=== PATIENT | male | born 1950 | race Two or more races ===

== ENCOUNTER 2022-02-20 12:34 | Inpatient (IN) | payer MEDICARE ==
[~2022-02-20] VITALS: Ht 182.9 cm; Wt 118.2 kg
[2022-02-20] VITALS (21 sets, daily range): BP systolic 133–215; BP diastolic 70–105
[2022-02-20] MEDS ORDERED: normal saline 1000ML IV soln IVB ONE (13:30)
[2022-02-20] MEDS ORDERED: LORazepam 2 mg/ml vial IV ONE (13:30)
[2022-02-20] MEDS ORDERED: ondansetron/PF 4mg/2ml inj IV ONE (13:30)
[2022-02-20] MEDS ORDERED: morphine 4 MG/ML inj SYRINge IV ONE (13:30)
[2022-02-20 14:10] LABS: BASOPHILS % (AUTO) 0.3 % (0-1); EOSINOPHILS # (AUTO) 0.1 X10'3 (0-0.9); EOSINOPHILS % (AUTO) 0.7 % (0-6); HEMATOCRIT 43.9 % (42.0-52.0); HEMOGLOBIN 14.4 g/dl (14.0-17.9); LYMPHOCYTES # (AUTO) 1.1 X10'3 (1.1-4.8); MEAN CORPUSCULAR HEMOGLOBIN 28.4 PG (27.0-31.0); MEAN CORPUSCULAR HGB CONC 32.9 g/dL (33.0-36.5); MEAN CORPUSCULAR VOLUME 86.3 FL (78-98); MEAN PLATELET VOLUME 6.9 FL (7.4-10.4); MONOCYTES # (AUTO) 0.4 X10'3 (0-0.9); MONOCYTES % (AUTO) 4.4 % (2-12); NEUTROPHILS % (AUTO) 83.6 % (42-75); PLATELET COUNT 207 X10'3 (140-440); RED BLOOD COUNT 5.08 X10'6 (4.70-6.10); RED CELL DISTRIBUTION WIDTH 17.1 % (11.5-14.5); WHITE BLOOD COUNT 9.6 X10'3 (4.5-11.0)
[2022-02-20] MEDS: morphine 2 MG/ML inj. syringe IV PRN (14:18)
[2022-02-20] MEDS ORDERED: piperacillin/tazo 4.5gm/100ml 100 ML IV ONE (14:25)
[2022-02-20 14:35] LABS: ALANINE AMINOTRANSFERASE 19 U/L (12-78); ALBUMIN 3.9 G/DL (3.4-5.0); ALKALINE PHOSPHATASE 84 IU/L (46-116); ANION GAP 9 (8-16); ASPARTATE AMINO TRANSFERASE 20 U/L (10-37); BILIRUBIN,TOTAL 0.8 MG/DL (0.1-1.0); BLOOD UREA NITROGEN 15 MG/DL (7-18); BUN/CREATININE RATIO 15.3 (5.4-32.0); CALCIUM 9.7 MG/DL (8.5-10.1); CHLORIDE 101 MMOL/L (99-107); CREATININE 0.98 MG/DL (0.60-1.10); GLUCOSE 155 MG/DL (70-104); SODIUM 139 MMOL/L (135-145); TOTAL CARBON DIOXIDE 29.5 MMOL/L (24-32); eGFR 76 ML/MIN
[2022-02-20] MEDS ORDERED: iohexol 300mg/ml 100ml inj. ONE (14:37)
[2022-02-20] MEDS: potassium Cl 10 mEq/100mL bag IV SCH ×2 (15:15→16:05)
[2022-02-20] MEDS ORDERED: morphine 4 MG/ML inj SYRINge IV PRN (15:50)
[2022-02-20] MEDS ORDERED: morphine 2 MG/ML inj. syringe IV PRN (15:50)
[2022-02-20] MEDS ORDERED: proCHLORperazine 10 MG/2 ml inj IV PRN (15:50)
[2022-02-20] MEDS ORDERED: ondansetron/PF 4mg/2ml inj IV PRN ×2 (15:50→16:00)
[2022-02-20] MEDS ORDERED: meperidine/PF 25mg/ml syringe IV PRN ×3 (15:50)
[2022-02-20] MEDS ORDERED: ringers solution, lacted 1,000 ML IV SCH (15:50)
[2022-02-20] MEDS ORDERED: magnesium 4gm in 100ml NS 100 ML IV PRN (16:00)
[2022-02-20] MEDS ORDERED: potassium Cl 20 mEq SR tablet PO PRN ×2 (16:00)
[2022-02-20] MEDS ORDERED: acetaminophen 325mg tablet PO PRN (16:00)
[2022-02-20] MEDS ORDERED: potassium Cl 40MEQ/1/2NS 520ml 520 ML IV PRN (16:00)
[2022-02-20] MEDS ORDERED: magnesium Cl slow-release 64mg tablet PO PRN (16:00)
--- NOTE | 2022-02-20 16:03 | NUR ---
PT BROUGHT INTO THE PACU FROM ED BY CYNTHIA, NO REPORT RECEIVED. ATTACHED DROWSY PT TO CM, BP 205/105 HR 99 SAO2 94% ON 2 LITERS, CALL INTO DR WALTON AND UPDATED, ORDERS RECEIVED, LABETALOL 5 MG GIVEN X 2 DOSES OVER 6 MINUTES W/BP STILL IN LOW 200'S/100'S, PT TAKEN TO THE OR FOR EMERGENT SURGERY. Addendum: 02/20/22 at 1644 by Renee Dial RN Amended: Links added.
[2022-02-20] MEDS ORDERED: labetalol 20mg/4ml (5mg/ml) syringe IV ONE (16:12)
[2022-02-20] MEDS: labetalol 20mg/4ml (5mg/ml) syringe IV PRN ×3 (16:12→17:58)
[2022-02-20] MEDS ORDERED: sevoflurane 250ml liquid IH ONE (16:17)
[2022-02-20] MEDS ORDERED: potassium Cl 2 mEq/ml inj IV ONE (16:17)
[2022-02-20 16:21] LABS: MAGNESIUM 1.7 MG/DL (1.5-2.4)
[2022-02-20] MEDS ORDERED: fentaNYL /PF 50mcg/ml 5ml ampule ONE (16:35)
[2022-02-20] MEDS ORDERED: midazolam 1 mg/ML 2ml injection ONE (16:35)
[2022-02-20] MEDS ORDERED: LIDOcaine 2% (20mg/ml) 5ml vial ONE (16:48)
[2022-02-20] MEDS ORDERED: rocuronium 10mg/ml inj IV ONE (16:48)
[2022-02-20] MEDS ORDERED: propofol inj 20 ML IV ONE (16:48)
[2022-02-20] MEDS ORDERED: BUPIVAcaine 0.5% inj/PF 30 ML ONE (17:21)
--- NOTE | 2022-02-20 17:43 | NUR ---
Received from OR via BED, accompanied by Anesthesiologist DR WALTON and report given by Anesthesiologist AND MITIGATION SUPERVISOR. PT RESTLESS, FOLLOWS COMMANDS BUT QUICKLY NEEDS REMINDERS OF WHERE HE IS AND THAT HE HAS JUST HAD SURGERY. AFTER A FEW MINUTES PT SETTLED DOWN. PAGE INTO RT FOR BREATHING TX. ENCOURAGED COUGH AND DEEP BREATH. ABDOMEN W/TRANSVERSE INCISION W/TAGADERM COVERING CDI. TIERNEY CATHETER TO GRAVITY DRAINAGE W/LIGHT YELLOW URINE IN DRAINAGE BAG. Addendum: 02/20/22 at 1808 by Renee Dial RN Amended: Links added.
[2022-02-20] MEDS ORDERED: ipratropium/albuterol 3ml nebule NEB PRN (17:50)
[2022-02-20] MEDS ORDERED: naloxone 0.4 mg/ml inj IV PRN (18:10)
[2022-02-20] MEDS ORDERED: hydrALAZINE 20mg/ml inj. IV PRN (18:45)
[2022-02-20] MEDS: HYDROmorph/NS 0.2 mg/ml PCA 100 ML IV SCH ×4 (18:46→23:00)
[2022-02-20] MEDS ORDERED: MESSAGE TO PHARMACY PO ONE (19:00)
[2022-02-20] MEDS ORDERED: dextrose 50%-water 50ml dispensing syringe IV PRN ×2 (19:00)
[2022-02-20] MEDS ORDERED: insulin Lispro (HumaLOG) vial - multi-dose SQ SCH (19:00)
[2022-02-20] MEDS ORDERED: DEXTROSE 15 GM of carb/4 tabs (each vial/BOTTLE has 4 tablets) PO PRN ×2 (19:00)
[2022-02-20] MEDS ORDERED: glucagon, human recombinant 1mg kit SUBCUT PRN (19:00)
[2022-02-20 19:20] LABS: HEMOGLOBIN A1C 5.7 % (4.5-6.2)
--- NOTE | 2022-02-20 19:33 | NUR ---
Report called to receiving nurse. Transferred via BED ON AND 03.25 BAG OF Belongings SENT W/PT TO ROOM 348A. PT REMAINS DROWSY, BUT RESPONDS APPROPRIATELY, RECEVING RN AT BEDSIDE TO RECEIVE PT, BLL, SIDE RAILS UP X 2, CALL LIGHT GIVEN TO PT. Special Issues communicated to receiving nurse. YES. Addendum: 02/20/22 at 1938 by Renee Dial RN Amended: Links added.
[2022-02-20] MEDS: K and/or MAG REPLACEMENT MC SCH (20:00)
[2022-02-20 20:47] LABS: MAGNESIUM 1.6 MG/DL (1.5-2.4); POTASSIUM 4.9 MMOL/L (3.5-5.1)
[2022-02-20] MEDS: insulin glargine (Lantus) pen - multi-dose SQ SCH (21:00)
[2022-02-20] MEDS: normal saline 1000ml 1,000 ML IV SCH (23:39)
[2022-02-21] MEDS: HYDROmorph/NS 0.2 mg/ml PCA 100 ML IV SCH ×4 (01:00→07:00)
[2022-02-21 02:00] VITALS: BP 135/75
[2022-02-21 06:00] VITALS: BP 140/69
[2022-02-21 06:23] LABS: ALBUMIN 2.9 G/DL (3.4-5.0); ANION GAP 6 (8-16); BLOOD UREA NITROGEN 15 MG/DL (7-18); BUN/CREATININE RATIO 16.7 (5.4-32.0); CALCIUM 8.7 MG/DL (8.5-10.1); CHLORIDE 103 MMOL/L (99-107); GLUCOSE 133 MG/DL (70-104); MAGNESIUM 1.7 MG/DL (1.5-2.4); POTASSIUM 4.3 MMOL/L (3.5-5.1); SODIUM 138 MMOL/L (135-145); TOTAL CARBON DIOXIDE 29.2 MMOL/L (24-32); eGFR 83 ML/MIN
[2022-02-21 06:27] LABS: BASOPHILS % (AUTO) 0.2 % (0-1); EOSINOPHILS % (AUTO) 0 % (0-6); HEMATOCRIT 41.1 % (42.0-52.0); HEMOGLOBIN 13.3 g/dl (14.0-17.9); LYMPHOCYTES # (AUTO) 0.8 X10'3 (1.1-4.8); MEAN CORPUSCULAR HEMOGLOBIN 28.1 PG (27.0-31.0); MEAN CORPUSCULAR HGB CONC 32.4 g/dL (33.0-36.5); MEAN CORPUSCULAR VOLUME 86.7 FL (78-98); MEAN PLATELET VOLUME 7.4 FL (7.4-10.4); MONOCYTES # (AUTO) 1.1 X10'3 (0-0.9); MONOCYTES % (AUTO) 9.6 % (2-12); NEUTROPHILS # (AUTO) 9.7 X10'3 (1.8-7.7); NEUTROPHILS % (AUTO) 83.2 % (42-75); PLATELET COUNT 216 X10'3 (140-440); RED BLOOD COUNT 4.74 X10'6 (4.70-6.10); RED CELL DISTRIBUTION WIDTH 17.5 % (11.5-14.5); WHITE BLOOD COUNT 11.6 X10'3 (4.5-11.0)
--- NOTE | 2022-02-21 06:44 | NUR ---
Problems reprioritized. Patient report given, questions answered & plan of care reviewed with TOMAS PASTOR. Addendum: 02/21/22 at 0645 by Sada Salcedo RN Amended: Links added.
[2022-02-21] MEDS: K and/or MAG REPLACEMENT MC SCH ×2 (08:00→21:47)
[2022-02-21 10:00] VITALS: BP 124/63
--- NOTE | 2022-02-21 10:00 | NUR ---
Dr Rose aware of pt's O2 Sats are 88 on RA and 92-95 on 2L/NC/O2.
[2022-02-21] MEDS ORDERED: PCA WASTE DOCUMENTATION MC ONE (10:10)
[2022-02-21] MEDS: normal saline 1000ml 1,000 ML IV SCH ×2 (11:15→22:09)
[2022-02-21] MEDS ORDERED: CHLO25TA10 PO (16:35)
[2022-02-21] MEDS ORDERED: PANT40TA54 PO (16:35)
--- NOTE | 2022-02-21 17:18 | NUR ---
[place] drsg w/ serous drainage leaking on linen was changed. Glenn intact, no active bleeding noted.
[2022-02-21 18:00] VITALS: BP 148/67
--- NOTE | 2022-02-21 18:10 | NUR ---
Patient report given, questions answered & plan of care reviewed with TOMAS Kline.
[2022-02-21] MEDS: morphine 2 MG/ML inj. syringe IV PRN (19:09)
[2022-02-21] MEDS: insulin glargine (Lantus) pen - multi-dose SQ SCH (21:00)
[2022-02-21] MEDS: HYDROcodone/acetaminophen 10/325mg tab PO PRN (22:09)
[2022-02-21 22:34] VITALS: BP 139/71
[2022-02-22] MEDS: normal saline 1000ml 1,000 ML IV SCH ×3 (02:20→20:04)
[2022-02-22 02:26] VITALS: BP 142/70
[2022-02-22] MEDS: HYDROcodone/acetaminophen 10/325mg tab PO PRN (05:59)
--- NOTE | 2022-02-22 06:05 | NUR ---
reported to days. noted pt just received norco for pain. encouraged CDB and IS use, splinting abd. pt may do better if able to clear secretions and get oxygen off. pt verbalized understanding
--- NOTE | 2022-02-22 06:10 | NUR ---
Patient in room [facility]. I have received report from Raisa MARIN and had the opportunity to ask questions and assume patient care.
[2022-02-22 06:16] VITALS: BP 133/61
--- NOTE | 2022-02-22 06:30 | NUR ---
Problems reprioritized. Patient report given, questions answered & plan of care reviewed with Keron MARIN.
[2022-02-22 07:00] LABS: BASOPHILS % (AUTO) 0.2 % (0-1); EOSINOPHILS % (AUTO) 0.3 % (0-6); HEMATOCRIT 35.3 % (42.0-52.0); HEMOGLOBIN 11.5 g/dl (14.0-17.9); LYMPHOCYTES % (AUTO) 7.2 % (21-51); MEAN CORPUSCULAR HEMOGLOBIN 28.4 PG (27.0-31.0); MEAN CORPUSCULAR HGB CONC 32.6 g/dL (33.0-36.5); MEAN CORPUSCULAR VOLUME 87.1 FL (78-98); MEAN PLATELET VOLUME 7.3 FL (7.4-10.4); MONOCYTES # (AUTO) 1.2 X10'3 (0-0.9); MONOCYTES % (AUTO) 8.6 % (2-12); NEUTROPHILS # (AUTO) 11.5 X10'3 (1.8-7.7); NEUTROPHILS % (AUTO) 83.7 % (42-75); PLATELET COUNT 159 X10'3 (140-440); RED BLOOD COUNT 4.05 X10'6 (4.70-6.10); RED CELL DISTRIBUTION WIDTH 16.7 % (11.5-14.5); WHITE BLOOD COUNT 13.7 X10'3 (4.5-11.0)
[2022-02-22 07:28] LABS: ALBUMIN 2.4 G/DL (3.4-5.0); ANION GAP 5 (8-16); BLOOD UREA NITROGEN 17 MG/DL (7-18); BUN/CREATININE RATIO 23.6 (5.4-32.0); CHLORIDE 103 MMOL/L (99-107); CREATININE 0.72 MG/DL (0.60-1.10); GLUCOSE 109 MG/DL (70-104); MAGNESIUM 1.8 MG/DL (1.5-2.4); POTASSIUM 4.2 MMOL/L (3.5-5.1); SODIUM 137 MMOL/L (135-145); TOTAL CARBON DIOXIDE 29.5 MMOL/L (24-32); eGFR > 90 ML/MIN
[2022-02-22] MEDS: K and/or MAG REPLACEMENT MC SCH ×2 (08:00→20:00)
[2022-02-22] MEDS: pantoprazole 40mg Tablet.DR PO SCH (08:19)
--- NOTE | 2022-02-22 08:45 | NUR ---
Patient refused to eat breakfast, states that he is not hungry. Patient states that he is passing gas but hasn't had a BM. Patient is cough more but unable to cough up secretions.
[2022-02-22 10:35] VITALS: BP 125/57
[2022-02-22 18:30] VITALS: BP 135/64
[2022-02-22] MEDS: insulin glargine (Lantus) pen - multi-dose SQ SCH (18:41)
[2022-02-23] MEDS: HYDROcodone/acetaminophen 10/325mg tab PO PRN ×2 (01:02→08:00)
[2022-02-23] MEDS: normal saline 1000ml 1,000 ML IV SCH (02:45)
[2022-02-23 06:00] VITALS: BP 150/62
[2022-02-23 06:09] LABS: BASOPHILS % (AUTO) 0.3 % (0-1); EOSINOPHILS # (AUTO) 0.1 X10'3 (0-0.9); EOSINOPHILS % (AUTO) 1.2 % (0-6); HEMOGLOBIN 10.4 g/dl (14.0-17.9); LYMPHOCYTES # (AUTO) 1.2 X10'3 (1.1-4.8); LYMPHOCYTES % (AUTO) 12.3 % (21-51); MEAN CORPUSCULAR HEMOGLOBIN 28.6 PG (27.0-31.0); MEAN CORPUSCULAR HGB CONC 32.6 g/dL (33.0-36.5); MEAN CORPUSCULAR VOLUME 87.7 FL (78-98); MEAN PLATELET VOLUME 7.2 FL (7.4-10.4); NEUTROPHILS # (AUTO) 7.2 X10'3 (1.8-7.7); NEUTROPHILS % (AUTO) 75.2 % (42-75); PLATELET COUNT 152 X10'3 (140-440); RED BLOOD COUNT 3.64 X10'6 (4.70-6.10); RED CELL DISTRIBUTION WIDTH 17.1 % (11.5-14.5); WHITE BLOOD COUNT 9.6 X10'3 (4.5-11.0)
--- NOTE | 2022-02-23 06:15 | NUR ---
Patient in room [facility]. I have received report from Keron MARIN and had the opportunity to ask questions and assume patient care.
[2022-02-23 06:24] LABS: ALBUMIN 2.4 G/DL (3.4-5.0); ANION GAP 5 (8-16); BLOOD UREA NITROGEN 11 MG/DL (7-18); BUN/CREATININE RATIO 15.3 (5.4-32.0); CALCIUM 8.3 MG/DL (8.5-10.1); CHLORIDE 103 MMOL/L (99-107); CREATININE 0.72 MG/DL (0.60-1.10); GLUCOSE 101 MG/DL (70-104); MAGNESIUM 1.9 MG/DL (1.5-2.4); SODIUM 137 MMOL/L (135-145); eGFR > 90 ML/MIN
--- NOTE | 2022-02-23 06:25 | NUR ---
Problems reprioritized. Patient report given, questions answered & plan of care reviewed with Iman. Addendum: 02/23/22 at 0626 by Enzo Hamm RN Amended: Links added.
[2022-02-23] MEDS: K and/or MAG REPLACEMENT MC SCH (07:07)
[2022-02-23] MEDS: pantoprazole 40mg Tablet.DR PO SCH (07:26)
--- NOTE | 2022-02-23 09:00 | NUR ---
promotional table spacer promotional table spacer Page Sent Message below texted to Dr Olivo: PAGER ID: [phone] MESSAGE: re: Sunday SarabiaA Dr Rose said pt can go home today. 91% RA now. ThanksTaryn Addendum: 02/23/22 at 0910 by Taryn Roach RN Message below texted to Dr Olivo: PAGER ID: [phone] MESSAGE: re: Sunday SarabiaA Dr Rose said pt can go home today. 91% RA now. ThanksTaryn71
[2022-02-23 10:00] VITALS: BP 154/66
--- NOTE | 2022-02-23 10:29 | NUR ---
PAGER ID: [phone] MESSAGE: CornellA- Trudy Brand Pls call when you get a moment. DONAN Ragsdale LVN [id number]
--- NOTE | 2022-02-23 10:30 | NUR ---
I have reviewed and agree with all interventions, assessments performed, and documention by Melyssa Vaz LVN.
[2022-02-23] MEDS ORDERED: HYDR-3972 PO (10:35)
--- NOTE | 2022-02-23 11:45 | NUR ---
Patient was discharged into the care of his son. Patient got himself dressed and gathered all belongings. Patient is a&o x4 and appropriate for discharge. Discharge paperwork was explained to patient and son. Patient was wheeled down stairs in a wheelchair and helped into private vehicle.
--- NOTE | 2022-03-27 09:17 | NUR ---
Case Management DC follow up:No telephone number listed for this Patient.I contacted 's office and secured an alternant telephone number.Left VM with name, telephone number, and reason for call.
== END 2022-02-23 11:45 | disposition home or self-care (01) | DRG 355 ==
LOC: ER 12:35 → ED HOLD 16:05 → SUR 3N 19:15
PROVIDERS: ADMIT Internal Medicine; ATTEND Internal Medicine
PROC: 0WQF0ZZ Repair Abdominal Wall, Open Approach (ICD-10-PCS; principal; 2022-02-20 16:17)
DX: K43.6 Other and unspecified ventral hernia with obstruction, without gangrene (principal); E11.9 Type 2 diabetes mellitus without complications; Z20.822 Contact with and (suspected) exposure to COVID-19; E87.6 Hypokalemia; D64.9 Anemia, unspecified; F12.90 Cannabis use, unspecified, uncomplicated; R09.02 Hypoxemia; D72.829 Elevated white blood cell count, unspecified; F17.200 Nicotine dependence, unspecified, uncomplicated; I10 Essential (primary) hypertension; J44.9 Chronic obstructive pulmonary disease, unspecified; E66.9 Obesity, unspecified; Z68.35 Body mass index [BMI] 35.0-35.9, adult; Z79.84 Long term (current) use of oral hypoglycemic drugs; Z88.5 Allergy status to narcotic agent
CPT/HCPCS: 36415; 71045; 74177; 80048; 80053; 82948; 83036; 83605; 83735; 84132; 85025; 85610; 87081; 87811; 88302; 93005; 94640; 94760; 96361; 96365; 96375; 97161; 97530; 99285; A4615; A4618; A4620; A7000; C1758; G0378; J1170; J1815; J2060; J2250; J2270; J2405; J2543; J2704; J3010; J3480; J3490; J7030; J7042; J7120; Q9967; S0020